=== PATIENT | male | born 1990 | race Hispanic/Latino ===

== ENCOUNTER 2018-11-20 07:49 | Emergency (ER) | payer OTHER | END 2018-11-20 08:24 | disposition home or self-care (01) | LOC: EDH 07:49 | DX: B86 Scabies (principal) ==

== ENCOUNTER 2018-11-30 15:59 | Emergency (ER) | payer OTHER ==
[2018-11-30] MEDS ORDERED: ACETAMINOPHEN EXTRA STRENGTH 500 MG TABLET ONE (16:35)
[2018-11-30] MEDS ORDERED: AMOXICILLIN 500 MG CAPSULE PO ONE (16:35)
== END 2018-11-30 17:09 | disposition home or self-care (01) ==
LOC: EDH 15:59
DX: H65.191 Other acute nonsuppurative otitis media, right ear (principal)